=== PATIENT | female | born 1990 ===

== ENCOUNTER 2022-10-05 14:54 | Outpatient (RCR) | payer BC, SELFPAY ==
[2022-10-05 15:10] VITALS: BMI 53.4
[2022-10-05 16:15] VITALS: BMI 53.4
== END 2022-12-25 10:04 | disposition home or self-care (01) ==
LOC: ANHDMC 14:54
PROVIDERS: PCP Family Medicine; Visit Provider Family Medicine
DX: E66.01 Morbid (severe) obesity due to excess calories (principal); Z68.42 Body mass index [BMI] 45.0-49.9, adult; Z71.3 Dietary counseling and surveillance
CPT/HCPCS: 97802